=== PATIENT | male | born 1985 | race Caucasian/White ===

== ENCOUNTER 2024-03-20 05:15 | Emergency (ER) | payer OTHER, SELFPAY ==
[2024-03-20 05:20] VITALS: BP 124/84
[2024-03-20 05:25] VITALS: BMI 22.5
--- NOTE | 2024-03-20 05:27 | EDRN ---
Pt has had fluttering in L side of his chest for few weeks. 'Weird twitching' woke pt this morning. Pt says he was lying supine when he woke and noticed pins and needles in his L arm. No sob, abd pain, n/v, fever/chills/cough, weakness,
dizziness, urinary symptoms. Fluttering is intermittent, no provocation and typically lasts couple seconds. Pt denies recent injury, travel, swelling.
[2024-03-20 05:30] VITALS: BP 131/85
--- NOTE | 2024-03-20 05:39 | ED.GENMED ---
History of Present Illness
General
Chief Complaint: Chest Pain
Source: patient
Time Seen by Provider: 03/20/24 05:29
History of Present Illness
History of Present Illness:
This patient is a 38-year-old male presents emergency department complaints of fluttering in his chest on the left side for the last few weeks. He states it is very random, happens every once in a while, last a few seconds and then resolves. He
thought it might be a muscle spasm. 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 However, this morning around 3:30 AM, he awoke with the fluttering and then noticed a 'weird sensation also described as 'burning tightness' in the left side of
his chest associated with 'hvxa-xio-jyuszmy' in his left arm. This is decreased significantly but is still present. He denies dyspnea, nausea, vomiting, focal weakness, leg swelling, fever, chills, cough, sore throat, rhinorrhea, back pain, neck
pain, headache, dizziness, or other complaints. Patient states that his uncle had an [place] last week, and he is worried about his heart.
Past History
Past History
ED Past Medical History: None
ED Past Surgical History: Other (wisdom teeth removal)
Social History
Tobacco: Non-smoker
Alcohol: Occasional
Drug: None
Personal:
Living: with family
Employment: Employed
Phy Exam
Physical Exam
Physical Exam:
GENERAL: Alert , in no apparent distress
EYE: pupils equal and reactive
NECK: Supple, no significant adenopathy.
ENT: o/p clr, mmm.
CARDIAC: Regular rate and rhythm .
LUNGS: Clear breath sounds bilaterally, no acute respiratory distress, no wheezes/rales/rhonchi
ABDOMEN: Soft, without focal tenderness, no r/g, no cvat
NEUROLOGICAL: Alert and oriented, no focal neuro deficits
SKIN: Warm and dry, skin intact.
MUSCULOSKELETAL: No edema, well perfused.
PSYCH: Normal and appropriate interaction.
Scores
Heart Score for Chest Pain Patients
STEMI patient?: Not applicable
Course
Orders/Labs/Results
Orders:
Orders
03/20/24 05:22
Electrocardiogram (*1) Urgent
Reason for Study: Chest Pain
EKG- Treatment ONCE
03/20/24 05:32
CMP [Comprehensive Metabolic Panel] Urgent
Complete Blood Count/With Diff Urgent
TSH Urgent
Comment: ADD ON
Troponin I Urgent
03/20/24 05:37
Add On- LAB Urgent
Tests Added?: tsh
Abnormal Lab Results
03/20/24
05:32
Glucose 102 H mg/dl
(70-99)
03/20/24 05:32
03/20/24 05:32
Vital Signs
Initial and Last Documented VS:
Initial Vital Signs
Temp Pulse Resp BP Pulse Ox
97.8 F 80 22 124/84 100
03/20/24 05:20 03/20/24 05:20 03/20/24 05:20 03/20/24 05:20 03/20/24 05:20
Last Documented Vital Signs
Temp Pulse Resp BP Pulse Ox
97.8 F 80 16 119/68 98
03/20/24 05:20 03/20/24 07:12 03/20/24 07:12 03/20/24 07:12 03/20/24 07:12
*Critical Care Note
Total Time (30-74mins, 75-104mins- exclusive of procedures): Not Applicable
Update Note
Update Note:
Patient presents to the Emergency Department with __fluttering, [id number] in left arm, weird feeling in chest
Number and Complexity of Problems Addressed at the Encounter
� Chronic conditions affecting care:
� Acute Exacerbation and/or Progression of Chronic Illness:
� Differential Diagnosis includes: But not limited to musculoskeletal pain, ACS, pericarditis, hyperthyroidism, etc. etc.
Amount and/or Complexity of Data to be Reviewed and Analyzed
� I performed an independent evaluation of and my interpretation is:
EKG: Read by me, normal sinus rhythm, normal axis, no acute ischemia
CT:
Xrays:
Laboratory Studies:unremarkable
Other:
� Review of other/old records reveals:
� Clinical information was obtained by an independent historian:
� Prescriptions/Medications Considered but not given:
� Further testing considered but not performed:
Risk of Complications and/or Morbidity or Mortality of Patient Management
� Social determinants of health affecting care:
� Discussion with other providers (PCP, Hospitalists, Consultants, etc):
� Escalation of care including admission/observation vs risk of discharge considered:701am, pt asx, well appearing, nontoxic, in nad. no sob, no cp, no arm sxs. Strongly doubt acs, or other serious etiology given atypical hx,
reassuring exam/labs/ecg etc. Did recommend repeat trop before d/c, he declines and d/w in my presence via phone. Aware of import of f/u and reasons to rted.
ED Attending Note
-
Portions of this chart may have been created with voice recognition software.� Occasional wrong word or��sound alike� substitutions may have occurred due to the inherent limitations of voice recognition software.
Discharge Plan
Departure
Patient Disposition: Home (Routine Discharge)
Date of Disposition: 03/20/24
Time of Disposition: 07:03
Patient with high blood pressure during this ER visit?: Yes
Condition: Good
Discharge Problem:
Heart palpitations, Chest pain
Instructions: Palpitations, Chest Pain PCP Follow Up, BLOOD PRESSURE
Prescriptions:
No Action
No Current Medications
0
Referrals:
UNKNOWN - PT DOES,NOT KNOW [Family Provider] -
Activity Restrictions/Additional Instructions:
PLEASE SEE YOUR DOCTOR IN CLOSE FOLLOW UP. IF YOU DEVELOP FEVER, CHILLS, VOMITING, TROUBLE BREATHING, CHEST DISCOMFORT, NAUSEA, OR OTHER WORRISOME SIGNS, GO TO THE ER IMMEDIATELY!
Interventions
Interventions:
*Risk Screen - Suicide Last Done: 03/20/24 05:20
*General Assessment Last Done: 03/20/24 05:25
*Neglect/Abuse Screening Last Done: 03/20/24 05:20
ED- Fall Risk Assessment Last Done: 03/20/24 05:34
*ED COVID-19 Vaccine History Last Done: 03/20/24 05:25
*Nursing Disposition Last Done: 03/20/24 07:13
ED- Cardiac Assessment Last Done: 03/20/24 05:34
Discharge Date and Time
Discharge Date/Time: 03/20/24 07:13
Print Language: [id number]
[2024-03-20 05:43] LABS: % Basophils 0.4 % (0-2); % Eosinophils 2.6 % (0-6); % Immature Granulocytes 0.2 % (0-0.5); % Lymphocytes 32.7 % (20.5-51.1); % Monocytes 6.5 % (1.7-9.3); % Neutrophils 57.6 % (42.2-75.2); Absolute Eosinophils 0.1 10^3/uL (0-0.7); Absolute Lymphocytes 1.6 10^3/uL (1.2-3.4); Absolute Monocytes 0.3 10^3/uL (0.1-0.6); Absolute Neutrophils 2.9 10^3/uL (1.4-6.5); Hematocrit 41.5 % (39.0-52.0); Hemoglobin 15.1 g/dL (13.0-18.0); Mean Corp Hgb Conc. 36.4 g/dL (33.0-37.0); Mean Corpuscular Hgb 30.1 pg (27.0-31.0); Mean Corpuscular Volume 82.7 fL (80.0-94.0); Nucleated Red Blood Cells % 0 % (-); Platelet Count 191 10^3/uL (130-400); Red Blood Cell Count 5.02 10^6/uL (4.70-6.10); Red Cell Dist. Width 12.3 % (11.5-14.5)
[2024-03-20 05:59] LABS: ALT (SGPT) 38 U/L (0-50); AST (SGOT) 32 U/L (17-59); Albumin 4.4 g/dl (3.5-5.0); Alkaline Phosphatase 50 U/L (38-126); Blood Urea Nitrogen 20 mg/dl (9-20); Calcium 9.7 mg/dl (8.4-10.2); Carbon Dioxide 29 mmol/L (22-30); Chloride 106 mmol/L (98-107); Estimated Creatinine Clearance 120 ml/min; Glucose 102 mg/dl (70-99); Potassium 3.7 mmol/L (3.5-5.1); Sodium 139 mmol/L (135-145); Total Bilirubin 0.8 mg/dl (0.2-1.3); Total Protein 6.7 g/dl (6.3-8.2); eGFR > 60.00
[2024-03-20 06:00] VITALS: BP 112/69
[2024-03-20 06:09] LABS: Troponin I < 0.012 ng/ml
[2024-03-20 06:30] LABS: TSH 3.01 uIU/ml (0.47-4.68)
[2024-03-20 07:12] VITALS: BP 119/68
== END 2024-03-20 07:13 | disposition home or self-care (01) ==
LOC: EMR 05:15
PROVIDERS: EMERGENCY PHYSICIAN Emergency Medicine
DX: R07.9 Chest pain, unspecified (principal); R00.2 Palpitations; R20.2 Paresthesia of skin; I49.8 Other specified cardiac arrhythmias; R03.0 Elevated blood-pressure reading, without diagnosis of hypertension; Z82.49 Family history of ischemic heart disease and other diseases of the circulatory system
CPT/HCPCS: 99283; 80053; 84443; 84484; 85025; 93005

== ENCOUNTER → 2024-09-14 17:46 | Outpatient (REF) | payer OTHER, SELFPAY | LOC: MRI 3T 17:46 | PROVIDERS: ATTENDING PHYSICIAN Physical Medicine & Rehabilitation; FAMILY PHYSICIAN Physician Assistant Medical | DX: M54.12 Radiculopathy, cervical region (principal) | CPT/HCPCS: 72141 ==

== ENCOUNTER → 2025-05-09 07:23 | Outpatient (REF) | payer OTHER, SELFPAY | LOC: RAD 07:23 | PROVIDERS: ATTENDING PHYSICIAN Physician Assistant Medical | DX: R10.9 Unspecified abdominal pain (principal) | CPT/HCPCS: 74177; Q9967 ==